=== PATIENT | female | born 1935 | race Caucasian/White ===

== ENCOUNTER 2017-12-13 11:04 | Outpatient (CLI) | payer MEDICARE, BC | END 2017-12-13 11:05 | disposition home or self-care (01) | LOC: BICMAMMO 11:04 | PROVIDERS: ATTEND Family Medicine | DX: Z12.31 Encounter for screening mammogram for malignant neoplasm of breast (principal); Z85.89 Personal history of malignant neoplasm of other organs and systems | CPT/HCPCS: 77063; 77067 ==

== ENCOUNTER 2018-07-05 19:00 | Emergency (ER) | payer MEDICARE, BC ==
[2018-07-05] MEDS ORDERED: Adacel (T-DAP) 0.5 ML SYRINGE ONE (20:14)
[2018-07-05] MEDS ORDERED: Bacitracin Zinc 1 Packet ONE (20:26)
--- NOTE | 2018-07-05 20:40 | CT ---
CT BRAIN 07/05/18 PROVIDED CLINICAL HISTORY: Injury. FINDINGS: Comparison is made with the study dated 10/09/13. The ventricular system appears normal in size and morphology. There is no evidence for intracranial h emorrhage or mass effect. Minimal chronic microvascular ischemic changes are seen. Left supraorbital frontal and right frontal scalp hematomas noted without evidence for associated fracture. IMPRESSION: No evidence for intracranial hemorrhage or skull fracture. POS: [facility]
== END 2018-07-05 20:46 | disposition home or self-care (01) ==
LOC: SCSER 19:00
DX: S01.81XA Laceration without foreign body of other part of head, initial encounter (principal); Z79.899 Other long term (current) drug therapy; W18.09XA Striking against other object with subsequent fall, initial encounter
CPT/HCPCS: 12011; 70450; 90471; 90715

== ENCOUNTER 2020-09-10 15:21 | Inpatient (IN) | payer MEDICARE, BC ==
--- NOTE | 2020-09-10 15:57 | RAD ---
Exam: XR Hip Lt 2-3 View HISTORY: Left hip pain after a fall. Left femur is externally rotated and there is shortening of the left lowe r extremity. Swelling to left hip. COMPARISON: 04/01/2017. FINDINGS: There is evidence of an intertrochanteric left hip fracture which is mildly comminuted with mild sepa ration of fracture fragments. Lesser trochanter fracture fragment is slightly displaced medially. No dislocation is seen. Degenerative changes are seen at the pubic symphysis. IMPRESSION: Mildly comminuted intertrochanteric left hip fracture.
--- NOTE | 2020-09-10 15:57 | RAD ---
XR Chest 1 View HISTORY: Fall. COMPARISON: None FINDINGS: The heart size is borderline. The aorta is tortuous. The lungs are well expanded without fo merlyn areas of consolidation, sharath pulmonary edema, pneumothorax or pleural effusions. IMPRESSION: No radiographic evidence of acute cardiopulmonary process.
[2020-09-10 16:07] LABS: #Lymphocytes 0.4 thou/uL (1.20-3.40); #Monocytes 0.4 thou/uL (0.11-0.59); #Neutrophils 5.8 thou/uL (1.40-6.50); %Basophils 0.7 % (0.0-1.0); %Eosinophils 0.3 % (0.0-10.0); %Lymphocytes 5.7 % (21.0-51.0); %Monocytes 5.4 % (0.0-10.0); %Neutrophils 87.9 % (42.0-75.0); Mean Corpuscular Hemoglobin 33.6 pg (27.0-31.0); Mean Platelet Volume 7.3 fL (7.4-10.4); Platelet Count 152 thou/uL (130-400); RBC Distribution Width 11.5 % (11.5-14.5); Red Blood Cell (RBC) Count 3.87 mill/uL (4.20-5.40); White Blood Cell (WBC) Count 6.6 thou/uL (4.8-10.8)
--- NOTE | 2020-09-10 16:08 | RAD ---
Exam: AP pelvis one view: HISTORY: Injury and left hip pain following a fall COMPARISON: None FINDINGS: Displaced comminuted intertrochanteric fracture left femur with minimal foreshortening. IMPRESSION: Comminuted minimally displaced foreshortened intertrochanteric fracture left femur.
[2020-09-10 16:32] LABS: ALT (SGPT) 16 U/L (8-55); AST (SGOT) 24 U/L (5-34); Alkaline Phosphatase 80 U/L (40-110); Anion Gap 14 mmol/L (10-20); BUN (Urea Nitrogen) 14 mg/dL (9.8-20.1); Bilirubin, Total 0.8 mg/dL (0.2-1.2); Calc. Creatinine Clearance 0 mL/min (70-130); Calcium 8.9 mg/dL (7.8-10.44); Carbon Dioxide 25 mmol/L (23-31); Chloride 95 mmol/L (98-107); Globulin 3.1 g/dL (2.4-3.5); Glucose 102 mg/dL (83-110); Potassium 3.9 mmol/L (3.5-5.1); Protein, Total 7.1 g/dL (5.8-8.1); Sodium 130 mmol/L (136-145)
[2020-09-10] MEDS ORDERED: Dextrose 50% Abboject 50 ML SYRINGE SLOW IVP PRN (17:01)
[2020-09-10] MEDS ORDERED: Morphine 2 MG/ML VIAL SLOW IVP PRN ×2 (17:01→19:33)
[2020-09-10] MEDS ORDERED: Ondansetron PF 4 MG/2 ML Vial IVP PRN (17:01)
[2020-09-10] MEDS ORDERED: hydrALAZINE 20 MG/ML VIAL SLOW IVP PRN (17:01)
[2020-09-10] MEDS ORDERED: Dextrose 5% in Water 1,000 ML IV PRN (17:01)
[2020-09-10] MEDS ORDERED: Ondansetron ODT 4 MG TAB PO PRN (17:01)
[2020-09-10 17:04] LABS: Magnesium 1.9 mg/dL (1.6-2.6); Phosphorus 2.7 mg/dL (2.3-4.7)
[2020-09-10] MEDS ORDERED: Cyclobenzaprine 10 MG TAB PO PRN (17:10)
[2020-09-10] MEDS ORDERED: Ketorolac Tromethamine 30 MG/ML VIAL ONE (17:46)
[2020-09-10] MEDS ORDERED: Morphine 2 MG/ML VIAL ONE (17:46)
[2020-09-10] MEDS ORDERED: Ibuprofen 200 MG TAB PO PRN (17:49)
[2020-09-10] MEDS ORDERED: traMADol HCl 50 MG TAB PO PRN ×2 (19:33)
[2020-09-10] MEDS ORDERED: Magnesium 2 GM/50 ML 2 GM in Premix Bag 1 BAG IVPB SCH (19:45)
[2020-09-10] MEDS ORDERED: Sodium Phosphate 15 MMOL in Sodium Chloride 0.9% 250 ML 250 ML IVPB SCH (19:45)
[2020-09-10 20:50] VITALS: BMI 24.8
[2020-09-10] MEDS: Senokot S 8.6-50 MG TAB PO SCH (21:48)
[2020-09-10] MEDS: Famotidine 20 MG TAB PO SCH (21:49)
[2020-09-10] MEDS: Sodium Chloride 0.9% 1,000 ML IV SCH (21:50)
--- NOTE | 2020-09-11 00:21 | HP ---
CHIEF COMPLAINT: Left-sided hip pain. HISTORY OF PRESENT ILLNESS: Ms. Savage is an 85-year-old female patient with a past medical history of hyperlipidemia and osteoporosis, fell this morning when she slipped in her bathroom. She landed on her left hip. The patient reports she was on the floor for about an hour before EMS was able to stand her up and bring her to the hospital. The patient is complaining of pain with any type of movement or rotation. X-ray was performed in the emergency department of the pelvis and hip, shows comminuted minimally displaced or shortened intertrochanteric fracture of left femur. The patient denies shortness of breath, chest pain, dizziness, nausea, vomiting, light sensitivity. REVIEW OF SYSTEMS: Negative except what was mentioned above, 10 system review of systems was otherwise negative. PAST MEDICAL HISTORY: Glaucoma, hyperlipidemia. PAST SURGICAL HISTORY: Knee replacement, tonsillectomy, cataract. SOCIAL HISTORY: The patient lives at home with her . They are both retired, they live in a single family house. Denies alcohol or drug abuse or smoking. ALLERGIES: NO KNOWN ALLERGIES. PHYSICAL EXAMINATION: VITAL SIGNS: Blood pressure 165/90, heart rate 88, O2 saturation 100%, respiratory rate 20. GENERAL: The patient lying flat in bed with her eyes closed, complaining of some abdominal and suprapubic discomfort. CARDIAC: Regular rate and rhythm. No murmurs or rubs. LUNGS: Equal breath sounds bilaterally. ABDOMEN: suprapubic tenderness on palpation Soft, nontender. MSK: Left leg is about half inch shorter than right leg. Diminished pulses bilaterally. +1 PT and DPs. Sensation intact. Compartments soft bilaterally. NEUROLOGIC: A and O x3. GCS 15. ASSESSMENT: 1. Ground level fall. 2. Displaced comminuted intertrochanteric fracture, left femur. 3. Hypertension. 4. Acute pain secondary to trauma. 5. History of hyperlipidemia. 6. Cataracts. PLAN: The patient will be transferred to surgical floor, orthopedic team will take the patient to the OR on 09/11/2019 for surgery. -Suprapubic tenderness, place Banks catheter and send out follow up on UA and culture. -We will resume all home medications. - Mechanical DVT prophylaxis.Pulmonary toilet. GI prophylaxis. Medically optimize the patient for surgery tomorrow. -N.p.o. IV fluids at night. Discuss patient with after dictation. Job ID: [id number] MTDD
[2020-09-11 05:34] LABS: Hemoglobin 12.7 g/dL (12.0-16.0); Mean Corpuscular HGB CONC 33.7 g/dL (32.0-36.0); Mean Corpuscular Volume 98.1 fL (78.0-98.0); Mean Platelet Volume 7.6 fL (7.4-10.4); Platelet Count 142 thou/uL (130-400); RBC Distribution Width 11.5 % (11.5-14.5); Red Blood Cell (RBC) Count 3.86 mill/uL (4.20-5.40); White Blood Cell (WBC) Count 5.2 thou/uL (4.8-10.8)
[2020-09-11 06:00] LABS: Anion Gap 10 mmol/L (10-20); BUN (Urea Nitrogen) 10 mg/dL (9.8-20.1); Calc. Creatinine Clearance 73 mL/min (70-130); Calcium 8.5 mg/dL (7.8-10.44); Carbon Dioxide 28 mmol/L (23-31); Chloride 95 mmol/L (98-107); Glucose 93 mg/dL (83-110); Magnesium 2.2 mg/dL (1.6-2.6); Phosphorus 3.5 mg/dL (2.3-4.7); Potassium 3.5 mmol/L (3.5-5.1); Sodium 129 mmol/L (136-145)
[2020-09-11] MEDS: Acetaminophen 500 MG TAB PO SCH ×4 (06:04→18:32)
[2020-09-11] MEDS: Sodium Chloride 0.9% 1,000 ML IV SCH ×2 (06:09→18:33)
[2020-09-11] MEDS ORDERED: CEFAZOLIN 2 GM in Premix Bag 1 BAG IVPB SCH (08:00)
[2020-09-11] MEDS: Senokot S 8.6-50 MG TAB PO SCH ×2 (08:08→20:10)
[2020-09-11] MEDS: Famotidine 20 MG TAB PO SCH ×2 (08:08→20:12)
[2020-09-11] MEDS: Polyethylene Glycol 3350 17 GM Packet PO SCH (08:08)
[2020-09-11 08:30] LABS: SARS-CoV-2 PCR by NAA Not Detected (NotDetected)
[2020-09-11] MEDS ORDERED: FLU VACC QS2020-21(65YR UP)/PF 240 MCG/0.7 ML SYRINGE IM ONE (09:00)
[2020-09-11] MEDS ORDERED: PHENYLEPHRINE-NS 100 MCG/ML 10 ML SYRINGE ONE (09:23)
[2020-09-11] MEDS ORDERED: Dexamethasone 20 MG/5 ML VIAL ONE (09:23)
[2020-09-11] MEDS ORDERED: Ondansetron PF 4 MG/2 ML Vial ONE (09:23)
[2020-09-11] MEDS ORDERED: PROPOFOL 200 MG/20 ML VIAL ONE (09:23)
[2020-09-11] MEDS ORDERED: Lidocaine 1% PF 5 ML VIAL ONE (09:23)
[2020-09-11] MEDS ORDERED: Fentanyl 100 MCG/2 ML VIAL ONE (17:02)
[2020-09-11] MEDS ORDERED: Promethazine HCl 25 MG/ML VIAL SLOW IVP PRN (17:52)
[2020-09-11] MEDS ORDERED: Morphine Sulfate 2 MG/ML SYRINGE SLOW IVP PRN (17:52)
[2020-09-11] MEDS ORDERED: Ondansetron HCl/PF 4 MG/2 ML Vial IVP PRN (17:52)
[2020-09-11] MEDS ORDERED: Promethazine HCl 25 MG/ML VIAL IM PRN (17:52)
--- NOTE | 2020-09-11 20:28 | RAD ---
TWO VIEWS OF THE LEFT HIP: 09/11/20 COMPARISON: 09/10/20 HISTORY: ORIF of femur fracture. FINDINGS/IMPRESSION: Multiple limited intraoperative fluoroscopic views of the left hip shows the patient to be status pos t ORIF of the intertrochanteric femur fracture with a plate and screws. No perihardware lucency is se en. The fracture is better aligned. POS: [facility]
--- NOTE | 2020-09-11 23:42 | OP ---
DATE OF PROCEDURE: 09/11/2020 OPERATION: Left proximal femur dynamic hip screw fixation. PREOPERATIVE DIAGNOSIS: Displaced left intertrochanteric femur fracture. POSTOPERATIVE DIAGNOSIS: Displaced left intertrochanteric femur fracture. COMPLICATIONS: None. ESTIMATED BLOOD LOSS: 100 mL. BOILERMAKER MECHANIC: Francisco Diego. IMPLANTS: Synthes 3-hole DHS with multiple screws. INDICATION: Ms. Savage is an 85-year-old female, who has fallen and fractured her left hip. She has been indicated for stabilization of intertrochanteric femur fracture. Risks have been reviewed in detail. She has elected to proceed with the operation. Risks to include nonunion, hardware related pain, DVT, PE, nerve or vascular injury, bleeding, and others. DESCRIPTION OF PROCEDURE: Ms. Savaeg was identified in the preoperative holding area. Her correct extremity was marked. She was carried to the operating room. She was positioned supine. General anesthesia was induced. A multidisciplinary time-out was performed. The left lower extremity was prepped and draped in sterile fashion. We began the procedure with longitudinal traction on the limb. We used intraoperative x-ray to assess the fracture. We rotated the limb until we had an anatomic reduction. We then made a small incision over the thigh. We dissected down through the subcutaneous tissues and opened the fascia. We then split the vastus lateralis posteriorly. At this point, we applied our angled guide. We placed a guide pin in the centered position of the femoral head. We overdrilled the guide pin. We then measured an appropriate length. We used the triple reamer for the guide pin. Next, we proceeded to place our central screw over the guide pin. Next, we impacted the 3-hole DHS plate. We placed 3 screws distally using intraoperative x-ray for guidance. At this point, we thoroughly irrigated with copious lavage. We took final x-ray images. We then closed in layers. A sterile dressing was applied. The patient was taken to the recovery room in good condition. The congressional assistant surgeon was responsible for positioning the patient, preparing the injured extremity, applying the tourniquet, and assisting in preparation for surgery. The congressional assistant was instrumental in reducing the injured limb by applying traction and reduction maneuvers as well as holding retractors and reduction tools. The congressional assistant also was instrumental in assisting in exposure throughout the operation using appropriate retractors. The congressional assistant participated in closure of the operative site as well as dressing application and splint application. Job ID: [id number]
[2020-09-12] MEDS: Acetaminophen 500 MG TAB PO SCH ×5 (00:01→23:51)
[2020-09-12] MEDS: CEFAZOLIN 2 GM in Premix Bag 1 BAG IVPB SCH ×2 (00:01→08:55)
--- NOTE | 2020-09-12 05:46 | PRG ---
DATE OF SERVICE: 09/11/2020 SUBJECTIVE: The patient was seen this evening. She is postop after fixation of her left intertrochanteric femur fracture. On my evaluation, she was awake and alert. She was oriented. Reports her pain is in control. Her is at bedside. OBJECTIVE: VITAL SIGNS: Temperature 98.1, pulse 90, respirations 18, oxygen saturation 96% on room air, and blood pressure 145/83. GENERAL: Well-appearing elderly female, sitting up in bed with no signs of acute distress. PULMONARY: Equal chest rise and fall. No signs of acute respiratory distress. ASSESSMENT: 1. Status post mechanical fall from standing. 2. Left intertrochanteric femur fracture, status post repair. 3. History of peripheral vascular disease, diverticulitis, glaucoma, and hyperlipidemia. PLAN: Continue regular diet and free water restriction. Discontinue IV fluid. Repeat blood work in the morning. Start physical and occupational therapy. She is pending discharge to acute rehab facility. Job ID: [id number]
--- NOTE | 2020-09-12 05:57 | PRG ---
DATE OF SERVICE: 09/11/2020 RESIDENT: LOIS DOSHI MD This patient was discussed and evaluated with Dr. Matias who agrees with the plan as stated below. SUBJECTIVE: This is an 85-year-old female who presented to the ED after slipping in her bathroom and landing on her left hip. She was found to have a displaced comminuted intertrochanteric fracture of her left femur from which she is scheduled to go to surgery today for repair. She was feeling very sleepy and stated that her pain was well controlled when not moving, but would spike when she did move. She is aware she is going to surgery and she had no questions at this time. OBJECTIVE: VITAL SIGNS: She has been afebrile, her heart rate has ranged from 68 to 77 beats per minute, which is normal. Her respiratory rate has ranged from 16 to 18 respirations per minute, which is normal. Her oxygen saturation has ranged from 93% to 100% on room air. Her blood pressure has ranged from 135 to 168 systolic over 66 to 82 diastolic, which was elevated. GENERAL: This is an elderly lady who is resting comfortably in bed, easily arousable, in no acute distress. RESPIRATORY: Respirations nonlabored, no distress. CARDIOVASCULAR: Regular rate and rhythm. NEUROLOGIC: No gross deficits. LABORATORY DATA: Her CBC showed a white count of 5.2, hemoglobin 12.7, hematocrit 37.9, and platelets 142, all of which were normal. Her basic metabolic panel showed a low sodium of 129, suboptimal potassium of 3.5, chloride of 95, bicarb of 28, BUN of 10, creatinine 0.64, calcium of 8.5, phosphorus of 3.5, magnesium 2.2, all of which were normal. ASSESSMENT: 1. Status post ground level fall. 2. Displaced comminuted left intertrochanteric fracture. 3. Hypertension. 4. History of hyperlipidemia. 5. Cataracts. PLAN: The patient will be getting surgery of her hip today. Her potassium was replaced this morning and will be followed with a basic metabolic panel in the morning. Due to her low sodium, a free water restriction of 1 L will be added, and this will be followed with morning basic metabolic panel as well. In the postoperative period, we will continue to manage her pain, bowel regimen, DVT prophylaxis. A post-acute screen order has also been placed already to evaluate for discharge planning. Job ID: [id number]
[2020-09-12 06:35] LABS: Hemoglobin 12.1 g/dL (12.0-16.0); Mean Corpuscular HGB CONC 34.1 g/dL (32.0-36.0); Mean Corpuscular Hemoglobin 33.7 pg (27.0-31.0); Mean Corpuscular Volume 98.8 fL (78.0-98.0); Mean Platelet Volume 7.7 fL (7.4-10.4); Platelet Count 137 thou/uL (130-400); RBC Distribution Width 11.5 % (11.5-14.5)
[2020-09-12 07:11] LABS: Anion Gap 13 mmol/L (10-20); BUN (Urea Nitrogen) 12 mg/dL (9.8-20.1); Calc. Creatinine Clearance 71 mL/min (70-130); Calcium 8.3 mg/dL (7.8-10.44); Carbon Dioxide 24 mmol/L (23-31); Chloride 96 mmol/L (98-107); Glucose 102 mg/dL (83-110); Phosphorus 2.2 mg/dL (2.3-4.7); Potassium 4.2 mmol/L (3.5-5.1); Sodium 129 mmol/L (136-145)
[2020-09-12] MEDS: Famotidine 20 MG TAB PO SCH ×2 (08:54→20:06)
[2020-09-12] MEDS: Senokot S 8.6-50 MG TAB PO SCH ×2 (08:55→20:06)
[2020-09-12] MEDS: Polyethylene Glycol 3350 17 GM Packet PO SCH (08:55)
[2020-09-12] MEDS ORDERED: Sodium Phosphate 30 MMOL in Sodium Chloride 0.9% 100 ML IVPB SCH (09:00)
--- NOTE | 2020-09-12 13:13 | PQF ---
CLINICAL DOCUMENTATION CLARIFICATION FORM: Dear Kaye Barksdale PA-C Date / Time: 09/12/2020 Please exercise your independent, professional judgment in responding to the clarification form. Clinical indicators are provided on the bottom of this form for your review. Please check appropriate box(es): [ X ] Hyponatremia please specify etiology, if known [ ] Clinically insignificant lab finding [ ] Other diagnosis [ ] Unable to determine In addition, please specify: Present on Admission (POA): [X ] Yes [ ] No [ ] Unable to determine For continuity of documentation, please document condition throughout progress notes and discharge summary. Thank You.To be completed by CDI/Coding staff for physician review: CLINICAL INDICATORS - SIGNS / SYMPTOMS / LABS / RESULTS AND LOCATION IN EMR *LAB (EMR): 09/10/2020 09/11/2020 09/12/2020 SODIUM 130 129 129 *09/11 pn ([facility]): Lab Data: Her BMP showed a low sodium of 129 Plan: Due to her low sodium, a free water restriction of 1 L will be added RISK FACTORS / RESULTS AND LOCATION IN EMR 09/11 pn ([facility]): Assessment: Left intertrochanteric femur fx, s/p repair. Hx PVD, diverticulitis, glaucoma, and hyperlipidemia. TREATMENTS / RESULTS AND LOCATION IN EMR 09/11 pn ([facility]) Plan: Continue regular diet and free water restriction. DC IV fluid. Repeat blood work in the morning. Thank you, Suri Patricia RN, BSN [email or web address] This is a permanent part of the Medical Record [facility]
[2020-09-12] MEDS: Aspirin 81 mg Enteric Coated Tablet PO SCH ×2 (13:20→20:06)
--- NOTE | 2020-09-12 18:15 | PRG ---
DATE OF SERVICE: 09/12/2020 SUBJECTIVE: The patient was seen during morning rounds. Awake, alert, no distress. The patient is postop day #1 status post repair of her left intertrochanteric femur fracture. The patient had no overnight events. The patient's pain is controlled at this time. The patient is eating a regular diet and voices no complaints or concerns. OBJECTIVE: VITAL SIGNS: Temperature 98.6, pulse 73, respirations 16, SpO2 95% on room air, blood pressure 125/73. GENERAL: Well-appearing elderly female, awake, alert, in no distress. RESPIRATORY: Respirations are nonlabored, no distress. CARDIAC: Regular rate, regular rhythm. EXTREMITIES: Moves all extremities, no focal deficits. Left hip dressing is clean, dry, and intact. LABORATORY DATA: WBC 7.0, RBC 3.60, hemoglobin 12.1, hematocrit 35.6. Sodium 129, potassium 4.2, chloride 96, BUN 12, creatinine 0.66, estimated GFR 86, phosphorus 2.2, magnesium 2.0. ASSESSMENT: 1. Status post ground level fall. 2. Displaced comminuted left intertrochanteric femur fracture, status post repair. 3. Hyponatremia. 4. Hypophosphatemia. 5. History of hypertension, hyperlipidemia, and cataracts. PLAN: Continue pain regimen and supportive care. Continue diet as tolerated. Replace electrolytes. Continue free water restriction of 1 L, the patient may have unlimited Gatorade. Continue PT and OT. We will start the patient on chemical VTE prophylaxis, as her hemoglobin is stable. The patient is pending placement to inpatient rehab pending insurance authorization. The plan was discussed with the patient who agrees. Plan was discussed with the attending. Job ID: [id number]
[2020-09-12] MEDS ORDERED: Silver Sulfadiazine 50 GM JAR TP SCH (21:00)
[2020-09-12] MEDS: Silver Sulfadiazine 50 GM JAR TP SCH (23:47)
[2020-09-13] MEDS: Acetaminophen 500 MG TAB PO SCH ×4 (05:47→23:40)
[2020-09-13 06:55] LABS: Anion Gap 13 mmol/L (10-20); BUN (Urea Nitrogen) 11 mg/dL (9.8-20.1); Calc. Creatinine Clearance 75 mL/min (70-130); Carbon Dioxide 26 mmol/L (23-31); Chloride 97 mmol/L (98-107); Glucose 98 mg/dL (83-110); Phosphorus 2.2 mg/dL (2.3-4.7); Potassium 3.7 mmol/L (3.5-5.1); Sodium 132 mmol/L (136-145)
[2020-09-13] MEDS: Polyethylene Glycol 3350 17 GM Packet PO SCH (09:10)
[2020-09-13] MEDS: Senokot S 8.6-50 MG TAB PO SCH ×2 (09:10→21:46)
[2020-09-13] MEDS: Silver Sulfadiazine 50 GM JAR TP SCH ×2 (09:11→23:41)
[2020-09-13] MEDS: Famotidine 20 MG TAB PO SCH ×2 (09:11→21:45)
[2020-09-13] MEDS: Aspirin 81 mg Enteric Coated Tablet PO SCH ×2 (09:11→21:46)
[2020-09-13] MEDS ORDERED: Potassium Phosphate 30 MMOL in Sodium Chloride 0.9% 250 ML 250 ML IVPB SCH (10:00)
--- NOTE | 2020-09-13 14:57 | PRG ---
DATE OF SERVICE: 09/13/2020 SUBJECTIVE: Ms. Savage is an 85-year-old female patient, recovering well on the surgical floor. Pain is well controlled, tolerating regular diet and having bowel movements. Status post ground level fall, postop day #2 comminuted IT fracture repair. No acute overnight events. OBJECTIVE: VITAL SIGNS: Temp 97.7, pulse 85, respiratory rate 18, 97 O2 on room air, blood pressure 94/57 at the time of dictation. General Sitting upright in bed, alert and oriented Cardiac Regular rate anrythm Lungs equal breath sounds bilaterally, no accessory muscle use MSK left femur minimal pain movement. Sensation intact bilaterally UE&LE LABORATORY DATA: Chemistry: Sodium 132, potassium 3.7, chloride 97, bicarbonate 26, BUN 11, creatinine 0.63, glucose 98, phosphate 2.2. Magnesium 2.0. ASSESSMENT: 1. Status post ground level fall. 2. Displaced comminuted intertrochanteric fracture, left femur, status post repair. 3. Hyponatremia. 4. Hyperphosphatemia. 5. History of hypertension, hyperlipidemia, cataracts. PLAN: Continue current pain regimen and bowel regimen. Continue diet as tolerated. Replete electrolytes. Continue free water restriction to 1 L. Continue PT, OT. Dispo referral was sent to [facility], pending [facility] approval and authorization. The patient is probably most likely can be discharged next if insurance approves. Job ID: [id number] MTDD
[2020-09-13] MEDS: PHOS-NAK 1 PKT PACK PO SCH ×2 (18:22→21:46)
[2020-09-14] MEDS: Acetaminophen 500 MG TAB PO SCH ×4 (04:51→23:19)
[2020-09-14 08:00] LABS: Anion Gap 13 mmol/L (10-20); BUN (Urea Nitrogen) 11 mg/dL (9.8-20.1); Calc. Creatinine Clearance 72 mL/min (70-130); Calcium 8.3 mg/dL (7.8-10.44); Carbon Dioxide 26 mmol/L (23-31); Chloride 98 mmol/L (98-107); Glucose 150 mg/dL (83-110); Magnesium 2.1 mg/dL (1.6-2.6); Phosphorus 2.8 mg/dL (2.3-4.7); Potassium 3.9 mmol/L (3.5-5.1); Sodium 133 mmol/L (136-145)
[2020-09-14] MEDS: Aspirin 81 mg Enteric Coated Tablet PO SCH ×2 (08:22→21:10)
[2020-09-14] MEDS: Famotidine 20 MG TAB PO SCH ×2 (08:23→21:10)
[2020-09-14] MEDS: Senokot S 8.6-50 MG TAB PO SCH ×2 (08:23→21:10)
[2020-09-14] MEDS: PHOS-NAK 1 PKT PACK PO SCH ×3 (08:23→21:10)
[2020-09-14] MEDS: Polyethylene Glycol 3350 17 GM Packet PO SCH (08:23)
[2020-09-14] MEDS: Silver Sulfadiazine 50 GM JAR TP SCH ×2 (08:29→21:11)
[2020-09-14] MEDS ORDERED: Simvastatin 5 MG TAB PO SCH (21:00)
[2020-09-15] MEDS: Acetaminophen 500 MG TAB PO SCH ×3 (06:01→18:21)
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
[2020-09-15] MEDS: Aspirin 81 mg Enteric Coated Tablet PO SCH (08:41)
[2020-09-15] MEDS: Famotidine 20 MG TAB PO SCH (08:41)
[2020-09-15] MEDS: PHOS-NAK 1 PKT PACK PO SCH ×2 (08:41→15:34)
[2020-09-15] MEDS: Silver Sulfadiazine 50 GM JAR TP SCH (08:42)
[2020-09-15] MEDS: Polyethylene Glycol 3350 17 GM Packet PO SCH (08:43)
[2020-09-15] MEDS: Senokot S 8.6-50 MG TAB PO SCH (08:43)
--- NOTE | 2020-09-15 15:07 | DIS ---
DATE OF ADMISSION: 09/10/2020 DATE OF DISCHARGE: 09/15/2020 ADMISSION DIAGNOSES: 1. Status post ground level fall. 2. Left intertrochanteric femur fracture. 3. History of hypertension, hyperlipidemia, and cataract surgery. 4. Acute pain secondary to trauma. CONSULTATION: Orthopedics, Dr. Rosas. PROCEDURE: Left proximal femur dynamic hip screw fixation. SUMMARY: The patient is an 85-year-old woman, who was brought to the emergency department status post ground level fall at her home in her bathroom. She was able to notify help and was brought by [facility] to the emergency department, where she underwent evaluation and examination and was noted to have the above injuries. The patient was taken to the operating room the following day to undergo her above procedure, which she tolerated well. Postoperatively, she began working with physical and occupational therapy, which she progressed, albeit somewhat slowly. At the time of discharge, the patient's pain was controlled, she was tolerating a diet, her bowel and bladder function had returned. She will follow up with Dr. Rosas in 2 weeks, sooner as needed. Job ID: [id number]
[2020-09-15 18:24] VITALS: BP 139/77; TEMP 98.8
== END 2020-09-15 18:15 | DRG 481 ==
LOC: ERS 15:21 → SURG A 17:01
PROVIDERS: ADMIT Surgery; ATTEND Surgery
PROC: 0QS704Z Reposition Left Upper Femur with Internal Fixation Device, Open Approach (ICD-10-PCS; principal; 2020-09-11)
DX: S72.142A Displaced intertrochanteric fracture of left femur, initial encounter for closed fracture (principal); E87.1 Hypo-osmolality and hyponatremia; K57.92 Diverticulitis of intestine, part unspecified, without perforation or abscess without bleeding; Z20.822 Contact with and (suspected) exposure to COVID-19; E78.5 Hyperlipidemia, unspecified; I10 Essential (primary) hypertension; H40.9 Unspecified glaucoma; Z96.652 Presence of left artificial knee joint; M81.0 Age-related osteoporosis without current pathological fracture; I73.9 Peripheral vascular disease, unspecified; E83.39 Other disorders of phosphorus metabolism; T24.011A Burn of unspecified degree of right thigh, initial encounter; X10.0XXA Contact with hot drinks, initial encounter; W01.0XXA Fall on same level from slipping, tripping and stumbling without subsequent striking against object, initial encounter; Y92.002 Bathroom of unspecified non-institutional (private) residence as the place of occurrence of the external cause; Z98.49 Cataract extraction status, unspecified eye
CPT/HCPCS: 36415; 51702; 71045; 72170; 76000; 80048; 80053; 83735; 84100; 85025; 85027; 86850; 86900; 86901; 87635; 93005; 94760; 96374; 96375; C1713; G0390; J0690; J1100; J1885; J2270; J2405; J2704; J3010; J3475; J3490; J7030; J7050; U0003; U0005

== ENCOUNTER 2022-06-07 10:36 | Outpatient (CLI) | payer MEDICARE, BC | END 2022-06-07 10:37 | disposition home or self-care (01) | LOC: BICRAD 10:36 | PROVIDERS: ATTEND Family Medicine | DX: M54.50 Low back pain, unspecified (principal); M47.816 Spondylosis without myelopathy or radiculopathy, lumbar region | CPT/HCPCS: 72100 ==

== ENCOUNTER 2023-08-09 10:23 | Day surgery (SDC) | payer MEDICARE ==
[2023-08-08 11:02] VITALS: BMI 20.1
[2023-08-09] MEDS ORDERED: PHENYLephrine 2.5% Ophth Soln 15 ml Bottle ONE (11:14)
[2023-08-09] MEDS ORDERED: Tropicamide 1% 15 ML BOTTLE OP SCH (11:30)
== END 2023-08-09 12:48 | disposition home or self-care (01) ==
LOC: SDC 10:23
PROVIDERS: ATTEND Ophthalmology
PROC: 085K3ZZ Destruction of Left Lens, Percutaneous Approach (ICD-10-PCS; principal; 2023-08-09)
PROC: 085J3ZZ Destruction of Right Lens, Percutaneous Approach (ICD-10-PCS; 2023-08-09)
DX: H26.493 Other secondary cataract, bilateral (principal); Z79.899 Other long term (current) drug therapy